=== PATIENT | female | born 1970 | race Caucasian/White ===

== ENCOUNTER 2020-07-13 11:27 | Observation (INO) ==
[2020-07-13] MEDS ORDERED: NITROGLYCERIN SL 0.4 MG TABLET SL PRN (14:54)
[2020-07-13] MEDS ORDERED: ENOXAPARIN 100 MG/ML SYRINGE SUBCUT STA (14:54)
[2020-07-13] MEDS ORDERED: ASPIRIN 325 MG TABLET PO STA (14:54)
[2020-07-13] MEDS ORDERED: ZALEPLON 5 MG CAPSULE PO PRN (15:26)
[2020-07-13] MEDS ORDERED: MAGNESIUM SULF RIDER 2 GM in PREMIX 1 EACH IV PRN (15:26)
[2020-07-13] MEDS ORDERED: ONDANSETRON 4 MG/2 ML VIAL IV PRN (15:26)
[2020-07-13] MEDS ORDERED: MORPHINE 4 MG/1 ML VIAL IV PRN (15:26)
[2020-07-13] MEDS ORDERED: ACETAMINOPHEN 325 MG TABLET PO PRN (15:26)
[2020-07-13] MEDS ORDERED: POTASSIUM CHLORIDE 20 MEQ TABLET PO PRN (15:26)
[2020-07-13] MEDS ORDERED: MAGNESIUM SULF RIDER 4 GM in PREMIX 1 EACH IV PRN (15:26)
[2020-07-13 15:44] LABS: Basophils # 0.1 10*3/uL (0.0-0.2); Basophils % 0.5 % (0.0-0.8); Eosinophils # 0.4 10*3/uL (0.0-0.87); Eosinophils % 3.4 % (0.00-10.9); Hematocrit 35.7 VOL% (35.7-47.0); Hemoglobin 11.9 GM/DL (12.0-16.0); Immature Granulocytes % 0.4 %; Immature Granulocytes Absolute 0.04 #; Lymphocytes # 2.7 10*3/uL (1.4-4.0); Lymphocytes % 25.3 % (21.3-54.2); Mean Corpuscular HGB Conc 33.3 GM/DL (32-36); Mean Corpuscular Volume 92.7 FL (87-102); Mean Platelet Volume 9.5 FL (9.6-12.0); Monocytes % 5.4 % (1.7-12.7); Platelet Count 298 T/CUMM (130-400); Red Blood Count 3.85 MC/CUMM (3.8-5.5); Red Cell Distribution Width 12.3 % (9.3-17.3); White Blood Count 10.5 T/CUMM (4-12)
[2020-07-13 16:04] LABS: Albumin 3.9 G/DL (3.4-5.0); Calcium 8.8 MG/DL (8.5-10.1); Osmolality,Calculated 275.5 MOS/KG (273-304); Potassium 4.1 MMOL/L (3.5-5.1); Total Protein 6.8 G/DL (6.4-8.3)
[2020-07-13] MEDS: SODIUM CHLORIDE 0.45% 1,000 ML IV SCH ×2 (16:04→22:40)
[2020-07-13 17:34] LABS: INR 1.1; PT Patient Result 11.6 SECS (9.8-11.9); Partial Thromboplastin Time 38.4 SECS (23.9-33.8)
[2020-07-14] MEDS ORDERED: ENOXAPARIN 60 MG/0.6 ML SYRINGE SUBCUT SCH (03:00)
[2020-07-14] MEDS: SODIUM CHLORIDE 0.45% 1,000 ML IV SCH (08:39)
[2020-07-14] MEDS ORDERED: PANTOPRAZOLE 40 MG TABLET PO SCH (09:00)
[2020-07-14] MEDS ORDERED: ASPIRIN EC 81 MG TABLET PO SCH (09:30)
[2020-07-14 11:48] VITALS: BP 95/56
== END 2020-07-14 13:19 | disposition home or self-care (01) ==
LOC: N.ED 11:27 → N.EDINP 11:27 → N.TELES 16:38
PROVIDERS: ADMIT Family Medicine; ATTEND Family Medicine